=== PATIENT | female | born 1970 | race Caucasian/White ===

== ENCOUNTER 2019-11-21 09:42 | Outpatient (CLI) | payer OTHER, SELFPAY ==
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
== END 2019-11-21 09:43 | disposition home or self-care (01) ==
PROVIDERS: PCP Internal Medicine; Visit Provider Internal Medicine
DX: M79.601 Pain in right arm (principal)
CPT/HCPCS: 95886; 95909

== ENCOUNTER → 2021-09-05 00:05 | Outpatient (CLI) | payer OTHER, SELFPAY ==
[2021-09-05 14:51] LABS: SARS-CoV-2 RNA PCR Negative
== END ==
PROVIDERS: PCP Internal Medicine; Visit Provider Internal Medicine Gastroenterology
DX: Z01.812 Encounter for preprocedural laboratory examination (principal); Z20.822 Contact with and (suspected) exposure to COVID-19
CPT/HCPCS: C9803; U0003; U0005

== ENCOUNTER 2021-09-09 01:25 | Day surgery (SDC) | payer OTHER, SELFPAY ==
[2021-08-27 13:54] VITALS: BMI 17.8
--- NOTE | 2021-09-08 17:11 | PM.HPGS ---
History of Present Illness History of Present Illness Consent: Risks, benefits, and alternatives have been discussed and questions answered. Patient agrees to proceed with procedure. Chief complaint: nausea, vomiting, GERD Narrative: Alanna Romero is a 51 year old female Was referred because of severe nausea and vomiting which has been going on for almost 2 years and progressively getting worse. She has a great deal of heartburn as well. Tums have not worked. She had also taking pantoprazole without relief. She takes Zofran regularly. She has lost 20 lb weight. She had gone from 117-97 lb. Additionally, she has lower abdominal cramping which is quite severe at times her stools are loose and watery at times. A CT scan was done last year that showed diffuse thickening of the sigmoid rectal sigmoid colon. Review of Systems Review of Systems: All systems reviewed & are unremarkable except as noted in HPI and below PMFSH Past Medical History Medical History Abdominal pain Diarrhea Nausea and vomiting Surgical History Surgical History History of cholecystectomy Hx of section Family History Family History Father Diabetes mellitus Cancer Hypertension Heart disease Mother Diabetes mellitus Depression Social History Social History Smoking packs per day: 1.5 Smoking cigarettes per day: 30.0 Years smoked: 35 Smoking pack-years: 52.50 Smoking status: Current every day smoker Tobacco type: cigarettes Second hand tobacco smoke exposure: Yes Alcohol intake: never Substance use: current Substance use type: marijuana Living arrangements: with family Meds Home Medications and Allergies Home Medications Medication Instructions Recorded Confirmed Type cyanocobalamin (vitamin B-12) 100 mcg IM MONTHLY ea 08/18/21 09/09/21 History 1,000 mcg/mL injection kit ondansetron 4 mg disintegrating 4 mg PO QID tablet 08/18/21 09/09/21 History tablet trazodone 100 mg tablet 100 mg PO DAILY tablet 08/18/21 09/09/21 History Allergies Allergy/AdvReac Type Severity Reaction Status Date / Time Penicillins Allergy Mild Rash Verified 09/09/21 10:40 morphine Allergy Unknown Swelling Verified 09/09/21 10:40 Exam Const: General: alert Orientation/consciousness: patient oriented x3 Resp: Auscultation: clear to auscultation bilaterally Cardio: Rhythm: regular rhythm GI: GI Palp: Yes Soft to palpation and No Tenderness to palpation present (GI) Neuro: General: patient oriented x3 Assessment and Plan Assessment and plan (1) Nausea and vomiting: Code(s): R11.2 - Nausea with vomiting, unspecified Status: Acute Assessment and Plan: EGD with possible biopsy or dilatation or cautery. (2) Diarrhea: Code(s): R19.7 - Diarrhea, unspecified Status: Acute Assessment and Plan: Colonoscopy with possible biopsy or polypectomy or cautery or injection of substances.
[2021-09-09 10:42] VITALS: BP 122/76; PULSE 75; RESP 16; TEMP 36.9; O2SAT 100
[2021-09-09] MEDS: LACTATED RINGERS 1,000 ML 150 ML IV CONT (10:50)
--- NOTE | 2021-09-09 11:21 | P.PNAN_ITS ---
Anes - Initial Pre Proc Eval Procedure: Operation Date: 09/09/21 12:30 Proposed Procedures p Esophagogastroduodenoscopy & Colonoscopy - Migel Lauren MD Date/Time: 09/09/21 11:21 Surgeon: Migel Lauren MD Pre Op Diagnosis: nausea, vomiting, GERD Patient Data Age: 51 Gender: F Height: 1.65 m Weight: 44.2 kg Last Vital Signs Temp 98.4 F 09/09/21 10:42 Pulse 75 09/09/21 10:42 Resp 16 09/09/21 10:42 BP 122/76 09/09/21 10:42 Pulse Ox 100 09/09/21 10:42 Allergies Allergy/AdvReac Type Severity Reaction Status Date / Time Penicillins Allergy Mild Rash Verified 09/09/21 10:40 morphine Allergy Unknown Swelling Verified 09/09/21 10:40 Home Medications Medication Instructions Recorded Confirmed Type cyanocobalamin (vitamin B-12) 100 mcg IM MONTHLY ea 08/18/21 09/09/21 History 1,000 mcg/mL injection kit ondansetron 4 mg disintegrating 4 mg PO QID tablet 08/18/21 09/09/21 History tablet trazodone 100 mg tablet 100 mg PO DAILY tablet 08/18/21 09/09/21 History Patient hx anesthesia problems: none Family hx anesthesia problems: none Results Review: All pre-operative results and documents have been reviewed as part of the pre-operative evaluation. [facility] Past Medical History Medical History (Updated 08/18/21 @ 15:01 by ALEENA George) Abdominal pain Diarrhea Nausea and vomiting Surgical History Surgical History (Updated 08/18/21 @ 13:54 by Tameka Holman MA) History of cholecystectomy Hx of section Family History Family History (Updated 08/18/21 @ 13:50 by Tameka Holman MA) Father Diabetes mellitus Cancer Hypertension Heart disease Mother Diabetes mellitus Depression Social History Social History (Updated 08/18/21 @ 14:00 by Tameka Holman MA) Smoking packs per day: 1.5 Smoking cigarettes per day: 30.0 Years smoked: 35 Smoking pack-years: 52.50 Smoking status: Current every day smoker Tobacco type: cigarettes Second hand tobacco smoke exposure: Yes Alcohol intake: never Substance use: current Substance use type: marijuana Living arrangements: with family Max Williamson Final PreProcedure Day of Procedure 09/09/21 11:21 Patient weight: thin Heart: regular rate and rhythm Lungs: clear to auscultation Airway: Mallampati scale class II Neurological: alert and oriented Last oral intake: >/= 8 hours ASA classification: II Emergent: no Anesthetic plan: proceed Anesthesia type and monitoring: general GIVS and standard monitoring Results Review: All pre-operative results and documents have been reviewed as part of the pre-operative evaluation. Informed Consent: The patient's anesthetic plan and its attendant risks and benefits were discussed with the patient/family/POA. Questions were solicited and answers provided to the satisfaction of the patient/family/POA.
[2021-09-09 12:41] VITALS: BP 125/72; PULSE 74; RESP 22; O2SAT 98
[2021-09-09 12:51] VITALS: BP 119/82; PULSE 72; RESP 20; O2SAT 100
[2021-09-09 13:01] VITALS: BP 123/78; PULSE 68; RESP 20; O2SAT 100
--- NOTE | 2021-09-09 13:01 | SUR.OPER ---
EGD start 1206 end 1209 Colonoscopy start 1215 end 1240.
== END 2021-09-09 13:15 | disposition home or self-care (01) ==
PROVIDERS: PCP Internal Medicine; Visit Provider Internal Medicine Gastroenterology
PROC: 0DJ08ZZ Inspection of Upper Intestinal Tract, Via Natural or Artificial Opening Endoscopic (ICD-10-PCS; CPT 43235; principal; 2021-09-09 12:30)
DX: Z12.11 Encounter for screening for malignant neoplasm of colon (principal); K64.8 Other hemorrhoids; D12.2 Benign neoplasm of ascending colon; R19.7 Diarrhea, unspecified; K21.9 Gastro-esophageal reflux disease without esophagitis; R11.2 Nausea with vomiting, unspecified; R63.4 Abnormal weight loss; Z68.1 Body mass index [BMI] 19.9 or less, adult; F17.210 Nicotine dependence, cigarettes, uncomplicated
CPT/HCPCS: 45385; 45381; 45380; 45388; 43239; 87081; 88305; J2001; J2704; J7120

== ENCOUNTER 2025-03-20 14:17 | Outpatient (CLI) | payer OTHER, SELFPAY ==
--- OUTSIDE RECORDS SUMMARY | 2025-02-03 18:00 | XMS_ITS | Continuity of Care Document ---
Author Organization [facility] Address [address] [place] [phone] Phone Care Team Providers Care Foundry Worker Apprentice Name Role Phone Flo VILLAGOMEZ, FACC, Caleb Unavailable Unavailab le Procedures Procedure Date EXTRACRANIAL STUDY Advance Directives Directive Yes / No Effective Date File Name No Information Encounters Encounter Description Practice Location Reason(s) For Visit Diagnoses Date Provider Providers Copied on Encounter [facility], [address] [place] [address], [id number], tel:[phone] [facility] No Information Flo Baiman. [address] [place] [address], [id number], . tel:[phone] Referring Provider: Caleb Rossi, [facility] [place], [address]. tel:[phone] Family History Family Member Type Diagnosis Age At Onset No Information Payers Payer name Insurance type Covered republican ID Authoriza tion(s) [place] [employer] [id number] Social History Type Description Quantity Date Captured Comments Sex Female Smoking Status No Information Chief Complaint And Reason For Visit No Information Reason For Referral Reason For Referral No Information History Of Present Illness Encounter Date Complaint History Of Prese nt Illness No Information Functional Status Date Functional Assessmen t No Information Instructions Date Instruction Additional Infor mation No Information Assessments Type Assessment Date No Information Patient Care Teams Name Effective Dates (start - stop) Status Members No Information
--- NOTE | 2025-03-20 | ECHO_ITS ---
Patient Info Name: Alanna Romero Age: 54 years : 1970 Gender: Female Ht: 65 in Wt: 110 lbs BSA: 1.50 m2 HR: 71 bpm BP: 165 / 79 mmHg Heart Rhythm: Sinus Rhythm Technical Quality: Fair Exam Date: 03/20/2025 1:11 PM Patient Status: P Admit Date: 03/20/2025 Exam Type: CA echo doppler w bubble study Complete two-dimensional, color flow and Doppler transthoracic echocardiogram is performed with agitated saline. Account Clerk: Neelam Joseph Attending Provider: Hesham Arrieta Contrast/Agitated Saline Contrast/Ag. Saline: Agitated Saline Amount: 20.00 ml New IV Access: Left Site Condition: IV removed Summary 1. Left ventricular chamber dimension is normal. 2. Left ventricular systolic function is normal, estimated at 60-65. 3. There is no increased left ventricular wall thickness. 4. The left ventricular diastolic function is grade I diastolic dysfunction. 5. Atrial septum is visualized without color flow evidence of shunting but there were a few bubbles seen in the left side after several cardiac cycles with agitated saline imaging. This can be seen with a pulmonary AVM or a very small patent foraminal valley. 6. There is moderate aortic valve regurgitation. 7. There is mild aortic valve calcification. 8. There is mild mitral valve regurgitation. 9. There is mild tricuspid valve regurgitation. 10. Maintenance follow-up and evaluation of the aortic insufficiency is recommended with serial echocardiograms. Left Ventricle Left ventricular chamber dimension is normal. Left ventricular systolic function is normal, estimated at 60-65. There is no increased left ventricular wall thickness. The left ventricular diastolic function is grade I diastolic dysfunction. Right Ventricle Right ventricular chamber dimension is normal. Right ventricular systolic function is normal. Left Atria Left atrial chamber dimension is mildly enlarged. Right Atria Right atrial chamber dimension is normal. Atrial Septum Atrial septum is visualized without color flow evidence of shunting but there were a few bubbles seen in the left side after several cardiac cycles with agitated saline imaging. This can be seen with a pulmonary AVM or a very small patent foraminal valley. Aortic Valve The aortic valve is trileaflet. There is no aortic valve stenosis. There is moderate aortic valve regurgitation. There is mild aortic valve calcification. Pulmonic Valve The pulmonic valve is normal. There is no pulmonic valve stenosis. There is trace pulmonic regurgitation. Mitral Valve The mitral valve has a calcified annulus. There is no mitral valve stenosis. There is mild mitral valve regurgitation. Tricuspid Valve The tricuspid valve leaflets are normal. There is no significant tricuspid valve stenosis. There is mild tricuspid valve regurgitation. No pulmonary hypertension, estimated pulmonary arterial systolic pressure is 30 mmHg. Other Findings Maintenance follow-up and evaluation of the aortic insufficiency is recommended with serial echocardiograms. Pericardium/Pleural The pericardium appears normal. There is no pericardial effusion. Inferior Vena Cava Normal inferior vena cava with >50% collapse upon inspiration consistent with normal right atrial pressure, 10 mmHg. Aorta The aortic root size at the sinus of Valsalva is normal. Left Ventricular Outflow Tract Name Value Normal LVOT 2D LVOT Diameter 2.0 cm LVOT Doppler LVOT Peak Velocity 157 cm/s LVOT Peak Gradient 10 mmHg LVOT Mean Gradient 4 mmHg LVOT VTI 30 cm LVOT VTI/AV VTI Ratio 0.9 LVOT Stroke Volume 89 ml LVOT CO 6.4 l/min LVOT CI 4.3 l/min/m2 Pulmonic Valve Name Value Normal RVOT Doppler RVOT Peak Velocity 99 cm/s RVOT Peak Gradient 4 mmHg PV Doppler PV Peak Velocity 110 cm/s PV Peak Gradient 5 mmHg Mitral Valve Name Value Normal MV Diastolic Function MV E Peak Velocity 91 cm/s MV A Peak Velocity 119 cm/s MV E/A 0.8 MV Decel Time (PW) 204 ms MV Annular TDI MV E/e' (Septal) 12.4 MV E/e' (Lateral) 15.5 MV E/e' (Average) 13.9 Tricuspid Valve Name Value Normal TV Regurgitation Doppler TR Peak Velocity 223 cm/s TR Peak Gradient 20 mmHg Estimated PAP/RSVP RA Pressure 10 mmHg <=5 PA Systolic Pressure 30 mmHg <36 RV Systolic Pressure 30 mmHg <36 TV Annular TDI TV Lateral Dianna s' Velocity 13.3 cm/s >=9.5 Aorta Name Value Normal Ascending Aorta Ao Root Diameter (MM) 2.9 cm Ao Root Diam Index (MM) 1.9 cm/m2 Aortic Valve Name Value Normal AV Doppler AV Peak Velocity 184 cm/s AV Peak Gradient 14 mmHg AV Mean Gradient 5 mmHg AV VTI 32 cm AV Area (Cont Eq VTI) 2.8 cm2 >=3.0 AV Area (Cont Eq Hilton) 2.6 cm2 AV DI (Hilton) 0.85 AV Regurgitation 2D LVOT Area 3.0 cm2 Ventricles Name Value Normal LV Dimensions 2D/MM IVS Diastolic Thickness (2D) 0.8 cm 0.6-1.0 LVID Diastole (2D) 4.5 cm 3.8-5.2 LVIW Diastolic Thickness (2D) 0.8 cm 0.6-0.9 LVID Systole (2D) 2.5 cm 2.2-3.5 LVOT Diameter 2.0 cm LV Mass (2D Cubed) 112.42 g 67.00-162.00 LV Mass Index (2D Cubed) 75 g/m2 43-95 Relative Wall Thickness (2D) 0.35 <=0.42 LV Fractional Shortening/Ejection Fraction 2D/MM LV Fractional Shortening (2D) 44 % 27-45 LV EF (2D Teichholz) 75 % LV Diastolic Volume (4C MOD) 63 ml LV EF (4C MOD) 64 % LV Diastolic Volume (2C MOD) 70 ml LV EF (2C MOD) 66 % LV Diastolic Volume (BP MOD) 66 ml 46-106 LV Diastolic Volume Index (BP MOD) 44 ml/m2 29-61 LV Systolic Volume (BP MOD) 24 ml 14-42 LV Systolic Volume Index (BP MOD) 16 ml/m2 8-24 LV EF (BP MOD) 63 % 54-74 LV Diastolic Length (4C) 6.9 cm LV Systolic Length (4C) 5.9 cm LV Stroke Volume (4C MOD) 40 ml Atria Name Value Normal LA Dimensions LA Dimension (MM) 4.0 cm 2.7-3.8 LA Volume (4C A-L) 44 ml LA Volume (BP A-L) 46 ml RA Dimensions RA Area (4C) 11.5 cm2 <=18.0 Report Signatures
== END 2025-03-20 14:18 | disposition home or self-care (01) ==
PROVIDERS: PCP Internal Medicine; Visit Provider Internal Medicine
DX: Z86.73 Personal history of transient ischemic attack (TIA), and cerebral infarction without residual deficits (principal); I34.0 Nonrheumatic mitral (valve) insufficiency; I35.1 Nonrheumatic aortic (valve) insufficiency; I36.1 Nonrheumatic tricuspid (valve) insufficiency
CPT/HCPCS: 93306; 96375